=== PATIENT | female | born 1965 | race Caucasian/White ===

== ENCOUNTER 2016-11-23 20:25 | Emergency (ER) | payer MEDICARE, MEDICAID ==
--- NOTE | 2016-11-23 21:19 | EDM.PDOC ---
ED HPI GENERAL MEDICAL PROBLEM - General Chief Complaint: Cardiovascular Problem Stated Complaint: SHORTNESS OF BREATH/RETAINING FLUID Time Seen by Provider: 11/23/16 21:00 Source of Information: Reports: Patient, Family History Limitations: Reports: No Limitations - History of Present Illness INITIAL COMMENTS - FREE TEXT/NARRATIVE: Increasing SOB with activity past 10-15 days worse last 2-3 with swelling in lower leg. Noted swelling in bilateral feet starting after airline flight from to [place]. Today able to walk only few feet then would have to stop. . Occasional chest pain with deep breathing, No fevers, No cough. No cardiac hx. Onset: Gradual Duration: Day(s):, Week(s): Location: Reports: Lower Extremity, Left, Lower Extremity, Right Context: Reports: Activity Mid-Sternal Chest Pain Score (Numeric/FACES): 5 - Related Data Allergies Allergy/AdvReac Type Severity Reaction Status Date / Time No Known Allergies Allergy Verified 11/23/16 20:33 Home Meds: Home Meds . [Unable to Verify Home Med List] 11/23/16 [History] Past Medical History HEENT History: Reports: Impaired Vision Genitourinary History: Reports: Other (See Below) Neurological History: Reports: Seizure Psychiatric History: Reports: Developmental Delay Endocrine/Metabolic History: Reports: Diabetes, Type II - Past Surgical History Other Female Surgeries/Procedures: kidney removed Social & Family History - Tobacco Use Smoking Status *Q: Never Smoker Second Hand Smoke Exposure: No - Caffeine Use Caffeine Use: Reports: Coffee - Recreational Drug Use Recreational Drug Use: No ED ROS GENERAL - Review of Systems Review Of Systems: See Below Constitutional: Reports: No Symptoms HEENT: Reports: No Symptoms Respiratory: Reports: Shortness of Breath. Denies: Cough Cardiovascular: Reports: Dyspnea on Exertion, Edema GI/Abdominal: Reports: No Symptoms : Reports: Frequency (usual ) Musculoskeletal: Reports: No Symptoms Skin: Reports: No Symptoms Neurological: Reports: No Symptoms ED EXAM, GENERAL - Physical Exam Exam: See Below Exam Limited By: No Limitations General Appearance: Alert, No Apparent Distress Eye Exam: Bilateral Eye: EOMI, PERRL Ears: Normal External Exam Ear Exam: Bilateral Ear: Canal Normal Nose: Normal Inspection Throat/Mouth: Normal Inspection, Normal Oropharynx Head: Atraumatic, Normocephalic Neck: Normal Inspection Respiratory/Chest: No Respiratory Distress, Lungs Clear, Normal Breath Sounds, Decreased Breath Sounds (bases) Cardiovascular: Normal Peripheral Pulses, Regular Rate, Rhythm. No: No Edema (2 -3 plus) GI/Abdominal: Normal Bowel Sounds, Soft, Non-Tender Back Exam: Normal Inspection. No: CVA Tenderness (L), CVA Tenderness (R) Extremities: Normal Inspection, Normal Range of Motion Neurological: Alert, Oriented. No: Normal Cognition Psychiatric: Normal Affect Skin Exam: Warm, Dry, Normal Color, Pallor EKG INTERPRETATION Rhythm: NSR Course - Vital Signs Last Recorded V/S: Last Vital Signs Temp 98.1 F 11/23/16 22:11 Pulse 97 11/23/16 22:11 Resp 21 H 11/23/16 22:11 BP 189/98 H 11/23/16 22:11 Pulse Ox 97 11/23/16 22:11 - Orders/Labs/Meds Orders: Active Orders 24 hr Category Date Time Status EKG 12 Lead [EKG Documentation Completion] [RC] URGENT Care 11/23/16 21:06 Active Labs: Laboratory Tests 11/23/16 11/23/16 11/23/16 Range/Units 20:58 20:58 20:58 WBC 7.1 (5.0-10.0) 10^3/uL RBC 2.70 L (4.2-5.4) 10^6/uL Hgb 8.4 L (12.0-16.0) g/dL Hct 27.3 L (37.0-47.0) % MCV 101.1 H (80-100) fL MCH 31.1 (27.0-34.0) pg MCHC 30.8 L (33.0-35.0) g/dL Plt Count 265 (150-450) 10^3/uL Neut % (Auto) 78.1 H (42.2-75.2) % Lymph % (Auto) 7.1 L (20.5-50.1) % Dawson % (Auto) 9.7 H (2-8) % Eos % (Auto) 4.5 H (1.0-3.0) % Baso % (Auto) 0.6 (0.0-1.0) % D-Dimer, Quantitative 258 (0-400) ng/mL Sodium 141 (135-145) mmol/L Potassium 5.8 H (3.6-5.0) mmol/L Chloride 112 H (101-111) mmol/L Carbon Dioxide 17.0 L (21.0-31.0) mmol/L Anion Gap 17.8 BUN 84 H (7-18) mg/dL Creatinine 4.3 H (0.6-1.3) mg/dL Est Cr Clr Drug Dosing 11.12 mL/min Estimated GFR (MDRD) 11 BUN/Creatinine Ratio 19.53 Glucose 335 H (74-105) mg/dL POC Glucose (70-105) mg/dl Calcium 8.4 (8.4-10.2) mg/dl Total Bilirubin 0.4 (0.2-1.0) mg/dL AST 34 (10-42) IU/L ALT 86 H (10-60) IU/L Alkaline Phosphatase 120 (42-121) IU/L CK-MB (CK-2) (0.4-4.7) ng/mL Troponin I 0.04 H* (0.00-0.02) ng/ml B-Natriuretic Peptide 488 H (0-100) pg/ml Total Protein 5.3 L (6.7-8.2) g/dl Albumin 2.6 L (3.2-5.5) g/dl Globulin 2.7 Albumin/Globulin Ratio 0.96 Amylase 55 (28-100) U/L Lipase 60 H (22-51) U/L Urine Color (YELLOW) Urine Appearance (CLEAR) Urine pH (5.0-9.0) Ur Specific [place] (1.005-1.030) Urine Protein (NEGATIVE) Urine Glucose (UA) (NEGATIVE) Urine Ketones (NEGATIVE) Urine Occult Blood (NEGATIVE) Urine Nitrite (NEGATIVE) Urine Bilirubin (NEGATIVE) Urine Urobilinogen (0.2-1.0) mg/dL Ur Leukocyte Esterase (NEGATIVE) Urine RBC /HPF Urine WBC (0-5/HPF) /HPF Ur Epithelial Cells /HPF Amorphous Sediment (0/HPF) /HPF Urine Bacteria (0-FEW/HPF) /HPF 11/23/16 11/23/16 11/23/16 Range/Units 20:58 21:42 22:47 WBC (5.0-10.0) 10^3/uL RBC (4.2-5.4) 10^6/uL Hgb (12.0-16.0) g/dL Hct (37.0-47.0) % MCV (80-100) fL MCH (27.0-34.0) pg MCHC (33.0-35.0) g/dL Plt Count (150-450) 10^3/uL Neut % (Auto) (42.2-75.2) % Lymph % (Auto) (20.5-50.1) % Dawson % (Auto) (2-8) % Eos % (Auto) (1.0-3.0) % Baso % (Auto) (0.0-1.0) % D-Dimer, Quantitative (0-400) ng/mL Sodium (135-145) mmol/L Potassium (3.6-5.0) mmol/L Chloride (101-111) mmol/L Carbon Dioxide (21.0-31.0) mmol/L Anion Gap BUN (7-18) mg/dL Creatinine (0.6-1.3) mg/dL Est Cr Clr Drug Dosing mL/min Estimated GFR (MDRD) BUN/Creatinine Ratio Glucose (74-105) mg/dL POC Glucose 271 H (70-105) mg/dl Calcium (8.4-10.2) mg/dl Total Bilirubin (0.2-1.0) mg/dL AST (10-42) IU/L ALT (10-60) IU/L Alkaline Phosphatase (42-121) IU/L CK-MB (CK-2) 6.00 H (0.4-4.7) ng/mL Troponin I (0.00-0.02) ng/ml B-Natriuretic Peptide (0-100) pg/ml Total Protein (6.7-8.2) g/dl Albumin (3.2-5.5) g/dl Globulin Albumin/Globulin Ratio Amylase (28-100) U/L Lipase (22-51) U/L Urine Color Yellow (YELLOW) Urine Appearance Slightly cloudy (CLEAR) Urine pH 5.5 (5.0-9.0) Ur Specific [place] 1.015 (1.005-1.030) Urine Protein >=300 H (NEGATIVE) Urine Glucose (UA) 500 H (NEGATIVE) Urine Ketones Negative (NEGATIVE) Urine Occult Blood Small H (NEGATIVE) Urine Nitrite Negative (NEGATIVE) Urine Bilirubin Negative (NEGATIVE) Urine Urobilinogen 0.2 (0.2-1.0) mg/dL Ur Leukocyte Esterase Negative (NEGATIVE) Urine RBC 0-5 /HPF Urine WBC 0-5 (0-5/HPF) /HPF Ur Epithelial Cells Few /HPF Amorphous Sediment Few (0/HPF) /HPF Urine Bacteria Few (0-FEW/HPF) /HPF Meds: Medications Discontinued Medications Generic Name Dose Route Start Last Admin Trade Name Vinny PRN Reason Stop Dose Admin Aspirin 324 mg 11/23/16 21:57 11/23/16 22:00 Aspirin PO 11/23/16 21:58 324 mg ONETIME ONE Administration Furosemide 40 mg 11/23/16 22:18 11/23/16 22:23 Lasix IVPUSH 11/23/16 22:19 40 mg NOW ONE Administration Insulin Human Regular 5 unit 11/23/16 22:12 11/23/16 22:21 Humulin R IV 11/23/16 22:13 5 units ONETIME ONE Administration Protocol Sodium Polystyrene Sulfonate 15 gm 11/23/16 22:19 11/23/16 22:23 Kayexalate PO 11/23/16 22:20 15 gm ONETIME ONE Administration - Radiology Interpretation Free Text/Narrative:: CXR bilateral interstial edema - Re-Assessments/Exams Free Text/Narrative Re-Assessment/Exam: 11/24/16 03:[address] Richa Salgado FMR regarding patient. Agree to transfer for further evaluation CHF, elevated troponin and renal failure. Tx via [facility] Departure - Departure Time of Disposition: 23:15 Disposition: DC/Tfer to Acute Hospital 02 Reason for Transfer *Q: Other Condition: Fair Clinical Impression: Elevated troponin, Seizure disorder, Mental retardation CHF (congestive heart failure) Qualifiers: Congestive heart failure type: unspecified congestive heart failure type Congestive heart failure chronicity: unspecified congestive heart failure chronicity Qualified Code(s): I50.9 - Heart failure, unspecified Renal failure Qualifiers: Renal failure chronicity: unspecified chronicity Qualified Code(s): N19 - Unspecified kidney failure Referrals: PCP,Not In Area [Primary Care Provider] - Forms: ED Department Discharge - My Orders Last 24 Hours: My Active Orders 11/23/16 21:06 EKG 12 Lead [EKG Documentation Completion] [RC] URGENT - Assessment/Plan Last 24 Hours: My Active Orders 11/23/16 21:06 EKG 12 Lead [EKG Documentation Completion] [RC] URGENT
[2016-11-23] MEDS ORDERED: Aspirin 81 MG Tab.Chew PO ONE (21:57)
[2016-11-23 22:12] VITALS: BP 189/98
[2016-11-23] MEDS ORDERED: Insulin Regular, Human 100 Units/ML 3 ML Vial IV ONE (22:12)
[2016-11-23] MEDS ORDERED: Furosemide 40 MG/4 ML VIAL IVPUSH ONE (22:18)
[2016-11-23] MEDS ORDERED: Sodium Polystyrene Sulfonate 15 GM/60 ML Susp 60 ML Bot PO ONE (22:19)
--- NOTE | 2016-11-25 09:57 | EKG ---
11/23/2016- [facility] - EKG per my reading shows sinus rhythm at a rate of 98. [facility] /[id number]
== END 2016-11-23 23:15 ==
LOC: DL.ED 20:25
DX: I50.9 Heart failure, unspecified (principal); N19 Unspecified kidney failure; G40.909 Epilepsy, unspecified, not intractable, without status epilepticus; R79.89 Other specified abnormal findings of blood chemistry; E11.9 Type 2 diabetes mellitus without complications
CPT/HCPCS: 36415; 71010; 80053; 81001; 82150; 82553; 82962; 83690; 83880; 84484; 85025; 85379; 93005; 93010; 96374; 96375; 99285; A9270; J1815; J1940